=== PATIENT | female | born 1975 | race Caucasian/White ===

== ENCOUNTER 2025-04-23 16:07 | Inpatient (IN) | payer MEDICARE, BC ==
[2025-04-23] VITALS (7 sets, daily range): BP systolic 123–167; BP diastolic 45–76; PULSE 80–88; RESP 15–23; TEMP 97.8–98.9; O2SAT 93–95
[~2025-04-23] VITALS: Ht 165.1 cm; Wt 102.0 kg
[2025-04-23 17:28] LABS: MEAN PLATELET VOLUME 7.7 FL (7.4-10.4); RED CELL DISTRIBUTION WIDTH 14.7 % (11.5-14.5)
--- NOTE | 2025-04-23 17:38 | Physician Documentation ---
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 Patient states she has had one transfusion previously back in 2021. She states that she occasionally will get Epogen but it is not consistent there has been no change in any dosage your consistency with how she gets this. Colonoscopy done in 2022 normal. Patient is only on blood thinners during her dialysis treatments. She denies any changes in her stool. No constipation, melena, diarrhea, abdominal pain, heartburn or acid reflux. Patient was transferred here from [facility] in [place] since they do not have the ability to do dialysis there however she did complete her dialysis today and she is not due for a dialysis treatment until Saturday. She has dialysis Saturday and Fridays. She is not fluid restricted and is not on a renal diet. Medication Reconciliation Allergies: Coded Allergies: No Known Allergies (Unverified , 04/23/25) Past Medical History Past Medical History: *RENAL/* (goodpastures disease ), Dialysis Lives In: Home Review of Systems All Other Systems at this time: Reviewed and Negative Physical Exam Vital Signs: Temperature: 98.2, Source: Temporal, Heart Rate: 84, Respiratory Rate: 26, BP: 146/77, Pulse Oximetry: 94, Weight: 102.000 Oxygen Flow Rate: 4.0 Physical Exam GENERAL: Alert, no acute distress. HEENT: NCAT, EOMI, PERRL, normal oropharynx, moist oral mucosa. NECK: Supple, trachea midline. CARDIAC: Regular rate and rhythm, no murmurs, rubs, or gallops. RESPIRATORY: Equal breath sounds, clear to auscultation bilaterally, no respiratory distress. GASTROINTESTINAL: Non distended, soft, nontender, No guarding or rebound. RECTAL: (NEGATIVE OCCULT BLOOD TEST DONE EARLIER TODAY AT [facility] PER RECORDS) MUSCULOSKELETAL: Normal range of motion, nontender, no swelling. NEUROLOGICAL: Awake, alert, and oriented x 3. SKIN: Warm/dry, no pallor, no rash. PSYCH: Alert and appropriate. Affect congruent with mood. Speech is clear. Good eye contact. Progress Progress Note CHEST XRAY FROM [place] E[facility]LIER TODAY SAYS BILATERAL LUNG INFILTRATES Results/Orders Results/Orders Orders - WHIT ALMONTE Type And Screen (04/23/25 16:34) Lrpc - Active Bleeding (04/23/25 16:34) BMP (04/23/25 16:34) Occult Bld Stool (04/23/25 16:34) Page Hospitalist (04/23/25 17:31) Completed Orders - WHIT ALMONTE Cbc/Diff (04/23/25 16:34) Vital Signs 04/23/25 04/23/25 04/23/25 16:08 16:17 16:49 Temp 98.2 Pulse 90 84 Resp 16 20 26 B/P (MAP) 130/98 146/77 (100) Pulse Ox 94 94 O2 Flow Rate 2.0 4.0 Laboratory Tests Test 04/23/25 16:58 White Blood Count 14.3 H Red Blood Count 2.37 L Hemoglobin 6.7 *L Hematocrit 20.6 *L Mean Corpuscular Volume 86.9 Mean Corpuscular Hemoglobin 28.4 Mean Corpuscular Hemoglobin Concent 32.6 L Red Cell Distribution Width 14.7 H Platelet Count 255 Mean Platelet Volume 7.7 Neutrophils (%) (Auto) 72.6 Lymphocytes (%) (Auto) 16.8 L Monocytes (%) (Auto) 10.2 Eosinophils (%) (Auto) 0.2 Basophils (%) (Auto) 0.2 Neutrophils # (Auto) 10.4 H Lymphocytes # (Auto) 2.4 Monocytes # (Auto) 1.5 H Eosinophils # (Auto) 0.0 Basophils # (Auto) 0.0 CBC Comment Chemistry Comments Medical Decision Making Additional information obtaine: other Findings RECORDS FROM [facility] Heart Score: 0 Differential Dx:Considerations: Include: anxiety, asthma, bronchitis, cardiogenic shock, CHF, COPD, dysrhythmia, hypertension, accelerated, hypertension, essential, hypertension, malignant, hyperventilation, hyponatremia, myocardial infarction, panic attack, pneumonia, pneumonitis, pneumothorax, PSVT, pulmonary embolism, respiratory distress, respiratory failure, sinusitis, upper resp. infection, other Departure Time of Disposition: 17:36 Admitted to Inpatient Unit: to hospitalist Impression: Primary Impression: Normocytic normochromic anemia Additional Impressions: Dialysis patient Goodpasture disease Pulmonary infiltrates Condition: Fair Referrals: NO PRIMARY CARE PROVIDER (PCP) Education Educated: Patient Educated regarding: diagnosis, treatment, need for follow up Signature Scribe Signature: x Attestation: WHIT Rivero Apr 23, 2025 17:38
[2025-04-23 17:47] LABS: CREATININE 5.71 MG/DL (0.40-0.90); TOTAL CARBON DIOXIDE 32.1 MMOL/L (24-32); eCRCL 11 ML/MIN; eGFR 8 ML/MIN
[2025-04-23] MEDS ORDERED: acetaminophen 650mg rectal suppository RC PRN (18:10)
[2025-04-23] MEDS ORDERED: magnesium sulf-water 2g/50mL 50 ML IV PRN (18:10)
[2025-04-23] MEDS ORDERED: HYDROcodone/acetaminophen 5mg/325mg tablet PO PRN (18:10)
[2025-04-23] MEDS ORDERED: ipratropium/albuterol 3ml nebule NEB PRN (18:10)
[2025-04-23] MEDS ORDERED: magnesium sulf-water 4G/100mL 100 ML IV PRN (18:10)
[2025-04-23] MEDS ORDERED: mag hydrox/Alum hydrox/simeth 30ml oral suspension PO PRN (18:10)
[2025-04-23] MEDS ORDERED: magnesium hydroxide 30ml (MOM) UD suspension PO PRN (18:10)
[2025-04-23] MEDS ORDERED: potassium Cl 20 mEq SR tablet PO PRN ×2 (18:10)
[2025-04-23] MEDS ORDERED: metoclopramide 5 mg/ml inj IV PRN (18:10)
[2025-04-23] MEDS ORDERED: potassium Cl 40MEQ/1/2NS 520ml 520 ML IV PRN (18:10)
[2025-04-23] MEDS ORDERED: bisacodyl 10mg suppository rectal RC PRN (18:10)
[2025-04-23] MEDS ORDERED: magnesium Cl slow-release 64mg tablet PO PRN (18:10)
[2025-04-23] MEDS ORDERED: ondansetron 4mg rapidly disintigrating tab PO PRN (18:10)
[2025-04-23] MEDS: normal saline 1000ml 1,000 ML IV SCH (18:10)
[2025-04-23] MEDS ORDERED: ondansetron/PF 4mg/2ml inj IV PRN (18:10)
[2025-04-23] MEDS ORDERED: HYDROcodone/acetaminophen 10/325mg tab PO PRN (18:10)
--- NOTE | 2025-04-23 18:32 | HISTORY AND PHYSICAL ---
History & Physical Providers to Chief complaint, shortness of breath ~ History of Present Illness Reason for Admit\Complaint: As above History of Present Illness 49 y/o female with history of multiple medical problems including end-stage renal disease on hemodialysis, anemia hemoglobin 6.3, history of anemia treated with blood transfusion and Epogen occasionally, hematuria, pre morbid obesity BMI 37, presented today to emergency department transferred from [facility] chief complaint shortness of breath; in addition patient with goodpasture disease here due to experiencing more shortness of breath and a hemoglobin of 6.3 at dialysis today. Patient states she has had one transfusion previously back in 2021. She states that she occasionally will get Epogen but it is not consistent there has been no change in any dosage your consistency with how she gets this. Colonoscopy done in 2022 normal. Patient is only on blood thinners during her dialysis treatments. She denies any changes in her stool. No constipation, melena, diarrhea, abdominal pain, heartburn or acid reflux. Patient was transferred here from [facility] in [place] since they do not have the ability to do dialysis there however she did complete her dialysis today and she is not due for a dialysis treatment until Saturday. She has dialysis Saturday and Fridays. She is not fluid restricted and is not on a renal diet. In emergency department patient was evaluated by medical provider and after consultation with fire extinguisher tester Decision was made to admit patient for further evaluation and treatment, no additional complaint or concern. Allergies: Coded Allergies: No Known Allergies (Unverified , 04/23/25) Active prescriptions I reviewed reconciled Home Medications Pending Past Medical History Past Medical History As in HPI Past Surgical History Surgical History Comment As in HPI Past Social History Social History Comment Deny illicit drug abuse tobacco alcohol use live with the family good social support Health Maintenance Health Maintenance Noncontributory ROS ROS Constitutional : no fever , no chills, or weakness. No diaphoresis. Allergic/Immunologic, no lymphadenopathy, no hives, no skin eruptions. Eyes, no recent visual changes, no eye pain, no photophobia. Ears, nose, mouth, throat, no sore throat, no nosebleed, no ear pain. Cardiovascular, no palpitations, skipped beats, chest pain, no peripheral edema, Respiratory, positive for dyspnea, orthopnea, cough, no hemoptysis, chest wall pain. Gastrointestinal, no abdominal pain, nausea, vomiting, constipation or diarrhea. : no dysuria, hematuria, pelvic pain, urethral d/c. Endocrine, no polyuria, polydipsia, recent unintentional weight gain or loss. Hematologic/Lymphatic, no petechiae, no enlarged lymph nodes, no bone pain. Integumentary, no rash, no skin lesions, Musculoskeletal, no muscle aches, or pain, no muscle cramps, no recent change in gait Neurological, no dizziness, no headache, no syncope, no paresthesia. Psychiatric, no delusions, visual hallucinations, or hearing hallucinations. ROS - in rest is as in HPI. Exam Vitals: Vital Signs Date Time Temp Pulse Resp B/P (MAP) Pulse Ox O2 Delivery O2 Flow Rate FiO2 04/23/25 17:56 85 23 137/70 (92) 93 4.0 04/23/25 16:08 98.2 Vital signs, stable ,afebrile. Pulse Oximetry reflects adequate oxygenation. On 4 L oxygen nasal cannula BMI is 37, weight 102 kg General: well developed, well nourished. Awake , alert, and oriented x4, resting comfortably in the bed, in no acute distress . Skin: Warm, dry, no pallor, no rash or petechiae. HEENT: Atraumatic, normocephalic, EOMI, anicteric sclera B; pink conjunctiva; PERRLA, normal oropharynx, moist oral and nasal mucosa. Tympanic membrane , nose , throat clear. Neck: Trachea midline. Supple, full range of motion, no JVD, bruit , hepatojugular reflex , lymphadenopathy or masses, or other lesions Cardiac: Regular rhythm, regular rate no murmurs, rubs, or gallops. Normal S1 and S2, no S3 noticed. PMI is normal. Respiratory: Equal breath sounds bilaterally, no tachypnea; lungs clear to auscultation bilaterally, no wheezing ,rub or rales, or crackles. Chest wall is symmetric and without deformity. No signs of trauma. Chest wall is nontender. No signs of respiratory distress. Resonance is normal upon percussion bilaterally. Gastrointestinal: Abdomen symmetric, non-distended, soft, non-tender, normal bowel sounds x4 quadrant, normoactive, no hepatosplenomegaly , no masses , no bruit, no flank pain bilaterally. No voluntary guarding, rebound, or rigidity. No tenderness to percussion. No pulsatile masses. Equal femoral pulses. No Sousa's sign or McBurney point tenderness. Back; no CVA tenderness bilaterally, no deformities. Neck and back are without deformity as well. No tenderness noted on palpation of the spinous processes. Spinous processes are midline. Cervical, thoracic, and lumbar paraspinal muscles are not tender and are without spasm. : Deferred by patient Musculoskeletal: Extremities, normal range of motion, non-tender, muscle strength 5/5 x 4. Negative Homans signs bilaterally on lower extremity. Distal pulses full symmetrical, no clubbing, cyanosis , edema. Neurological: Speech is clear, alert, and oriented x 4. No motor or sensory deficit, deep tendon reflexes normal, cerebellar intact. Cranial nerves II-XII intact. Psych: Alert and or appropriate, normal affect. Vascular: Good distal pulses, which are equal x4; capillary refill less than 2 seconds. Lymphatic, no lymphadenopathy. Diagnostic Data Last Recorded Lab Results: [id number]/[id number] Diagnostic Data: Laboratory Tests Test 04/23/25 16:58 Coagulation Comments Advance Care Planning Advanced Care plannin - 30 Minutes Additional Plan Assessment Goodpasture disease End-stage renal disease on hemodialysis secondary to above Acute bilateral pneumonia community-acquired g positive g negative Acute hypoxic respiratory failure secondary to above Anemia hemoglobin 6.3 Hematuria History of chronic anemia treated with blood transfusion Epogen in the past Pre morbid obesity BMI 37 Plan IV antibiotics, fluids prn, keep patient well hydrated Incentive spirometry, oxygen support therapy [facility] Is on the case Serial troponin EKG Blood transfusion CT chest abdomen pelvis pending I reconciled home medications DVT gastropathy prophylaxis addressed Sepsis Screening Reassessment Date: Apr 23, 2025 Date of Service: Apr 23, 2025 Billing Provider: CARLY EDGE MD Common Visit Codes: [id number] INP/OBS CARE (HIGH) Secondary Visit Codes: 63483-[id number] CARE PLAN 30 MINUTES CARLY EDGE MD Apr 23, 2025 18:32
[2025-04-23 18:36] LABS: APTT 30 SECONDS (22-32); INR 1.1 INR
[2025-04-23 18:58] LABS: PHOSPHORUS 4.4 MG/DL (2.3-4.5); PRO BRAIN NATRIURETIC PEPTIDE 2767 PG/ML (0-125)
--- NOTE | 2025-04-23 19:12 | RADIOLOGY REPORT ---
Procedure: CT CT CHEST ABDOMEN PELVIS 04/23/2025 06:27 PM Indication: sepsis; opacities Comparison Study: None Technique: Axial images were obtained and reformatted in coronal and sagittal planes. All CT scans at this medical facility are performed using dose modulation techniques as appropriate to a performed exam including the following: Automated exposure control was utilized; adjustment of the MA and/or KV according to patient size; and use of iterative reconstruction technique. CT Dose: CTDI volume is 32.54 mGy. Dose-length product is 2544.74 mGy*cm FINDINGS: Chest: The thyroid gland is unremarkable. Heart size is within normal limits. Trace pericardial effusion. Pulmonary trunk is normal in size. No evidence of aortic aneurysm. No significant mediastinal lymphadenopathy. Ground-glass , Tree-in-bud and solid Opacities of bilateral Lung. Right mid lower lobe bullae. No pneumothorax or pleural effusion. The soft tissues unremarkable. No evidence of acute osseous abnormalities. Abdomen and pelvis: 1.6 cm splenic cyst. 3.2 cm hepatic cyst., liver, spleen, gallbladder, pancreas and right adrenal gland are unremarkable. 3 cm left adrenal nodule measuring up to 0.1 Hounsfield units which most likely represents an adenoma. Kidneys, ureters and urinary bladder are unremarkable. Uterus and adnexa are unremarkable. Stomach is unremarkable. Small bowel loops unremarkable. Appendix is unremarkable. Sigmoid diverticulosis without diverticulitis. Moderate to large amount of fecal material within the colon. No evidence of intraperitoneal free air or free fluid. No evidence of aortic aneurysm. No significant lymphadenopathy. Tiny fat containing umbilical hernia. Minimal body wall edema. Sclerotic focus over the right transverse process of L3 which may represent a small bone island with a Blastic lesion not excluded. No evidence of acute osseous abnormalities. IMPRESSION: Ground-glass, tree-in-bud and patchy opacities of bilateral lungs which may represent multifocal pneumonia. No evidence of acute abdominopelvic abnormalities. 1.6 cm splenic cyst with 3.2 cm hepatic cyst. 3 cm left adrenal adenoma. Sigmoid diverticulosis without diverticulitis. Moderate to large amount of fecal material within the colon.
[2025-04-23] MEDS: K and/or MAG REPLACEMENT MC SCH (20:00)
[2025-04-23] MEDS: docusate sod 100mg capsule PO SCH (20:00)
[2025-04-23] MEDS: heparin, porcine 5000 units/ml vial SQ SCH (20:19)
[2025-04-23] MEDS ORDERED: ROSU20TA98 PO (20:22)
[2025-04-23] MEDS ORDERED: EZET10TA80 PO (20:22)
[2025-04-23 21:50] LABS: MEAN PLATELET VOLUME 7.8 FL (7.4-10.4); RED CELL DISTRIBUTION WIDTH 14.4 % (11.5-14.5)
[2025-04-23 23:23] LABS: LEUKOCYTE ESTERASE ,URINE NEGATIVE (Neg); NITRITES, URINE NEGATIVE (Neg); OCCULT BLOOD,URINE LARGE (Neg)
[2025-04-23 23:25] LABS: UA COLLECTION TYPE VOIDED
[2025-04-23 23:38] LABS: SQUAMOUS EPITHELIAL CELL,UR FEW /LPF (FEW)
[2025-04-24] VITALS (12 sets, daily range): BP systolic 126–149; BP diastolic 55–74; PULSE 72–89; RESP 14–18; TEMP 97.2–99; O2SAT 92–96
[2025-04-24 01:44] LABS: MEAN PLATELET VOLUME 7.5 FL (7.4-10.4); RED CELL DISTRIBUTION WIDTH 14.5 % (11.5-14.5)
[2025-04-24 02:00] LABS: CREATININE 6.49 MG/DL (0.40-0.90); TOTAL CARBON DIOXIDE 31.2 MMOL/L (24-32); eCRCL 9 ML/MIN; eGFR 7 ML/MIN
[2025-04-24] MEDS: azithromycin/NS 500mg/250ml 250 ML IV SCH (07:14)
[2025-04-24 08:15] LABS: MEAN PLATELET VOLUME 8.2 FL (7.4-10.4); RED CELL DISTRIBUTION WIDTH 15.2 % (11.5-14.5)
[2025-04-24] MEDS: CefTRIAXone 2gm/D5W 50ml BAG 50 ML IV SCH (09:05)
[2025-04-24 11:27] LABS: MEAN PLATELET VOLUME 8.5 FL (7.4-10.4); RED CELL DISTRIBUTION WIDTH 15.0 % (11.5-14.5)
--- NOTE | 2025-04-24 14:38 | PROGRESS NOTE ---
Daily Progress Note Providers to CC ~ patient is feeling better today, hemoglobin 8.6 Central Line/PICC still needed: No Fuchs-Non Protocol Fuchs Indications Met/Not Met: F/C Indications Not Met Antibiotic Timeout Antibiotic Ordered?: Yes MRSA Education MRSA Education Provided to pt: Yes Subjective As above Objective Vital Signs Date Time Temp Pulse Resp B/P (MAP) Pulse Ox O2 Delivery O2 Flow Rate FiO2 04/24/25 10:07 85 18 92 Nasal Cannula* 4 36 04/24/25 10:00 98.6 144/66 (92) Vital signs, stable ,afebrile. Pulse Oximetry reflects adequate oxygenation. On 4 L oxygen nasal cannula General: well developed, well nourished. Awake , alert, and oriented x4, resting comfortably in the bed, in no acute distress . Skin: Warm, dry, no pallor, no rash or petechiae. HEENT: Atraumatic, normocephalic, EOMI, anicteric sclera B; pink conjunctiva; PERRLA, normal oropharynx, moist oral and nasal mucosa. Tympanic membrane , nose , throat clear. Neck: Trachea midline. Supple, full range of motion, no JVD, bruit , hepatojugular reflex , lymphadenopathy or masses, or other lesions Cardiac: Regular rhythm, regular rate no murmurs, rubs, or gallops. Normal S1 and S2, no S3 noticed. PMI is normal. Respiratory: Equal breath sounds bilaterally, no tachypnea; lungs clear to auscultation bilaterally, no wheezing ,rub or rales, or crackles. Chest wall is symmetric and without deformity. No signs of trauma. Chest wall is nontender. No signs of respiratory distress. Resonance is normal upon percussion bilaterally. Gastrointestinal: Abdomen symmetric, non-distended, soft, non-tender, normal bowel sounds x4 quadrant, normoactive, no hepatosplenomegaly , no masses , no bruit, no flank pain bilaterally. No voluntary guarding, rebound, or rigidity. No tenderness to percussion. No pulsatile masses. Equal femoral pulses. No Sousa's sign or McBurney point tenderness. Back; no CVA tenderness bilaterally, no deformities. Neck and back are without deformity as well. No tenderness noted on palpation of the spinous processes. Spinous processes are midline. Cervical, thoracic, and lumbar paraspinal muscles are not tender and are without spasm. Musculoskeletal: Extremities, normal range of motion, non-tender, muscle strength 5/5 x 4. Negative Homans signs bilaterally on lower extremity. Distal pulses full symmetrical, no clubbing, cyanosis , edema. Neurological: Speech is clear, alert, and oriented x 4. No motor or sensory deficit, deep tendon reflexes normal, cerebellar intact. Cranial nerves II-XII intact. Psych: Alert and or appropriate, normal affect. Vascular: Good distal pulses, which are equal x4; capillary refill less than 2 seconds. Lymphatic, no lymphadenopathy. Result Diagram: 04/24/25 1049 04/24/25 0137 Coagulation Studies Laboratory Tests Test 04/23/25 16:58 Prothrombin Time 11.1 SECONDS (9.0-12.0) INR International Normalized Ratio 1.1 INR Activated Partial Thromboplast Time 30 SECONDS (22-32) Coagulation Comments Problem\Assessment\Plan Assessment Goodpasture disease End-stage renal disease on hemodialysis secondary to above Acute bilateral pneumonia community-acquired g positive g negative Acute hypoxic respiratory failure secondary to above Anemia hemoglobin 6.3; F OBS test, pending F OBS was negative at sending hospital History of EGD colonoscopy in the past 3- seven years Hematuria History of chronic anemia treated with blood transfusion Epogen in the past Pre morbid obesity BMI 37 Plan IV antibiotics, fluids prn, keep patient well hydrated Incentive spirometry, oxygen support therapy [facility] Nephrology Is on the case Serial troponin EKG Blood transfusion GI doctor consult pending CT chest abdomen pelvis pending I reconciled home medications DVT gastropathy prophylaxis addressed Sepsis Screening Reassessment Date: Apr 24, 2025 Date of Service: Apr 24, 2025 Billing Provider: CARLY EDGE MD Common Visit Codes: [id number] INP/OBS CARE(HIGH) CARLY EDGE MD Apr 24, 2025 14:38
--- NOTE | 2025-04-24 15:15 | CONSULTATION REPORT ---
Consult Providers to CC ~ History of Present Illness Primary Medical Doctor: theron baum MD Reason for Admit\Complaint: gross hematuria, pulmonary infiltrates, good pasture syndrome, ESRD History of Present Illness This is a 49 year old woman with history of Good pasture syndrome, that was on treatment under from [place], until 2021, and I spoke with him today. Although over te weekend, he couldn't recall everything, he does remember her GBS and feels, with the presentation with hematuria and pulmonary infiltratres, and O2 dependency, though it is a burnt kidneys, she may very well need pulmonary aggressive management including steroids, cytoxan and plasmapheresis. Unfortunately, this hospital does not offer plasmapheresis or chemotherapy. I have requested to get her transferred to 's service in [place] and he will be the accepting physician over there. I shall give Solumedrol 500mg iv x once now. She has end-stage renal disease on hemodialysis, anemia hemoglobin 6.3, history of anemia treated with blood transfusion and Epogen occasionally, hematuria, pre morbid obesity BMI 37, presented yesterday to emergency department transferred from [facility] chief complaint shortness of breath; in addition patient with goodpasture disease here due to experiencing more shortness of breath and a hemoglobin of 6.3 at dialysis today. Patient states she has had one transfusion previously back in 2021. She states that she occasionally will get Epogen but it is not consistent there has been no change in any dosage your consistency with how she gets this. Colonoscopy done in 2022 normal. Patient is only on heparin during her dialysis treatments. She denies any changes in her stool. No constipation, melena, diarrhea, abdominal pain, heartburn or acid reflux. Patient was transferred here from [facility] in [place] since they do not have the ability to do dialysis there however she did complete her dialysis today and she is not due for a dialysis treatment until Saturday. She has dialysis Saturday and Fridays. When I spoke to the ER physician last night, anemia was the focus and I requested him to rule out any gi loss. The pulmonary infiltrates and history of Good pasture was never discussed last night with me. Allergies: Coded Allergies: No Known Allergies (Unverified , 04/23/25) Home Medications Home Medications Active Reported Rosuvastatin Calcium 20 Mg Tablet 1 Tab PO DAILY Ezetimibe 10 Mg Tablet 1 Tab PO DAILY Past Medical History Past Medical History Good pasture syndrome ESRD on HD at [facility] unit HTN Obesity hematuria Past Surgical History Surgical History Comment TDC Past Social History Social History Comment non smoker, non alcoholic no drug abuse ROS ROS shortness of breath, mild orthopnea gross hematuria no rectalbleeds or hematemesis Exam Vitals: Vital Signs Date Time Temp Pulse Resp B/P (MAP) Pulse Ox O2 Delivery O2 Flow Rate FiO2 04/24/25 10:07 85 18 92 Nasal Cannula* 4 36 04/24/25 10:00 98.6 144/66 (92) General: Vital Signs: As above General: obese body habitus, no acute distress. Skin: No rashes, lumps, ulcers, blisters, purpura or petechiae HEENT: Anicteric sclera, ANGIE Neck: Supple and nontender without enlargement of the thyroid, or lymphadenopathy. Chest: few scattered rales Heart: Regular. No jugular venous distention, S1 and S2 heard , no gallop Abdomen: Soft and non tender no organomegaly,BS+ Extremities: No pedal edema Neuro: Nonfocal. Diagnostic Data Last Recorded Lab Results: 04/24/25 1049 04/24/25 0137 Diagnostic Data: Laboratory Tests Test 04/23/25 16:58 Prothrombin Time 11.1 SECONDS (9.0-12.0) INR International Normalized Ratio 1.1 INR Activated Partial Thromboplast Time 30 SECONDS (22-32) Coagulation Comments Problems: (1) Gross hematuria Assessment & Plan: - could be reactivation of GBS vs any hemorrhagic cystitis from the previous exposure to Cyclophosphamide - I spoke to as mentioned inteh HPI. - I have updated the RN and to get her transferred to [place] ONLY under , in light of possible GBs reactivation, that would require plasmpheresis, cytoxan and high dose steroids. of these, we can only provide the steroids here. For lack of specialty drugs and procedure, she has to be transferred to outside hospital [facility]RO. - There is still a possibility of infective process, with the wbc being slightly high here. She has bilateral infiltrates in kaela CT scan. This needs to be carefully assessed with ID consult as well, before instituting meds like Cytoxan. But plasma exchange is the need of the hour. - HD - no emergency. She looks ok from that front. She may benefit with both PlEX and HD tomorrow. (2) Normocytic normochromic anemia Status: Acute Assessment & Plan: epogen , xfusion as indicated to keep hb above 7 (3) Goodpasture disease Status: Acute Assessment & Plan: apparently treated in 2021, with burnt kidneys and is on dialysis. Bk can pull up records from [place] later. (4) Pulmonary infiltrates Status: Acute Assessment & Plan: highly suspicious for non infectious process, although infection is not completely ruled out yet. BONG SHIPMAN MD Apr 24, 2025 15:15
[2025-04-24] MEDS ORDERED: D5W IV ONE (15:30)
[2025-04-24] MEDS ORDERED: METHYLPREDNISOLONE SOD SUC IV ONE (15:30)
--- NOTE | 2025-04-24 15:34 | DISCHARGE SUMMARY ---
Discharge Summary Providers to Feels better today, ready to be transferred to [facility], Dr. Todd accepted the patient he is research contracts supervisor ~ Discharge Summary Assessment Assessment Goodpasture disease exacerbation End-stage renal disease on hemodialysis secondary to above Acute bilateral pneumonia community-acquired gr positive gr negative Acute hypoxic respiratory failure secondary to above Anemia hemoglobin 6.3, now 8.6 Hematuria History of chronic anemia treated with blood transfusion Epogen in the past Pre morbid obesity BMI 37 Admission Diagnosis: RDTF HF PNEUMONIA Admission Diagnosis Comment: Assessment Goodpasture disease End-stage renal disease on hemodialysis secondary to above Acute bilateral pneumonia community-acquired g positive g negative Acute hypoxic respiratory failure secondary to above Anemia hemoglobin 6.3 Hematuria History of chronic anemia treated with blood transfusion Epogen in the past Pre morbid obesity BMI 37 Hospital Course DATE OF ADMISSION: April 23, 2025 DATE OF DISCHARGE: April 24, 2025 Discharge Diagnosis\Comment: Assessment Goodpasture disease in exacerbation End-stage renal disease on hemodialysis secondary to above Acute bilateral pneumonia community-acquired g positive g negative Acute hypoxic respiratory failure secondary to above Anemia hemoglobin 6.3 , now 8.6 Hematuria History of chronic anemia treated with blood transfusion Epogen in the past Pre morbid obesity BMI 37 Operations\Procedures: Non Consultants: Bean Viner Complications: None Condition on DC: Stable Discharge Summary: This is 49 y/o female with history of multiple medical problems including end- stage renal disease on hemodialysis, anemia hemoglobin 6.3, history of anemia treated with blood transfusion and Epogen occasionally, hematuria, pre morbid obesity BMI 37, presented today to emergency department transferred from [facility] chief complaint shortness of breath; in addition patient with goodpasture disease here due to experiencing more shortness of breath and a hemoglobin of 6.3 at dialysis today. Patient states she has had one transfusion previously back in 2021. She states that she occasionally will get Epogen but it is not consistent there has been no change in any dosage your consistency with how she gets this. Colonoscopy done in 2022 normal. Patient is only on blood thinners during her dialysis treatments. She denies any changes in her stool. No constipation, melena, diarrhea, abdominal pain, heartburn or acid reflux. Patient was transferred here from [facility] in [place] since they do not have the ability to do dialysis there however she did complete her dialysis today and she is not due for a dialysis treatment until Saturday. She has dialysis Saturday and Fridays. She is not fluid restricted and is not on a renal diet. In emergency department patient was evaluated by medical provider and after consultation with research contracts supervisor Decision was made to admit patient for further evaluation and treatment, no additional complaint or concern. After admission patient was extensively evaluated treated, she feels better today, we will be transferred to [facility], research contracts supervisor Accepted the patient, Solu-Medrol 500 mg IV given times on now, today on physical exam, Vital signs, stable ,afebrile. Pulse Oximetry reflects adequate oxygenation. BMI is thirty-seven, weight 102 kg General: well developed, well nourished. Awake , alert, and oriented x4, resting comfortably in the bed, in no acute distress . Skin: Warm, dry, no pallor, no rash or petechiae. HEENT: Atraumatic, normocephalic, EOMI, anicteric sclera B; pink conjunctiva; PERRLA, normal oropharynx, moist oral and nasal mucosa. Tympanic membrane , nose , throat clear. Neck: Trachea midline. Supple, full range of motion, no JVD, bruit , hepatojugular reflex , lymphadenopathy or masses, or other lesions Cardiac: Regular rhythm, regular rate no murmurs, rubs, or gallops. Normal S1 and S2, no S3 noticed. PMI is normal. Respiratory: Equal breath sounds bilaterally, no tachypnea; lungs clear to auscultation bilaterally, no wheezing ,rub or rales, or crackles. Chest wall is symmetric and without deformity. No signs of trauma. Chest wall is nontender. No signs of respiratory distress. Resonance is normal upon percussion bilaterally. Gastrointestinal: Abdomen symmetric, non-distended, soft, non-tender, normal bowel sounds x4 quadrant, normoactive, no hepatosplenomegaly , no masses , no bruit, no flank pain bilaterally. No voluntary guarding, rebound, or rigidity. No tenderness to percussion. No pulsatile masses. Equal femoral pulses. No Sousa's sign or McBurney point tenderness. Back; no CVA tenderness bilaterally, no deformities. Neck and back are without deformity as well. No tenderness noted on palpation of the spinous processes. Spinous processes are midline. Cervical, thoracic, and lumbar paraspinal muscles are not tender and are without spasm. : normal external genitalia, without lesions, swelling, masses or tenderness. Musculoskeletal: Extremities, normal range of motion, non-tender, muscle strength 5/5 x 4. Negative Homans signs bilaterally on lower extremity. Distal pulses full symmetrical, no clubbing, cyanosis , edema. Neurological: Speech is clear, alert, and oriented x 4. No motor or sensory deficit, deep tendon reflexes normal, cerebellar intact. Cranial nerves II-XII intact. Psych: Alert and or appropriate, normal affect. Vascular: Good distal pulses, which are equal x4; capillary refill less than 2 seconds. Lymphatic, no lymphadenopathy. *Problems/Diagnosis: (1) Pulmonary infiltrates Status: Acute (2) Goodpasture disease Status: Acute (3) Dialysis patient Status: Acute (4) Normocytic normochromic anemia Status: Acute Total Time Spent on D/C: > 30 Minutes Date of Service: Apr 24, 2025 Billing Provider: CARLY EDGE MD Common Visit Codes: 80973-TJN/OBS DISCH DAY >30min CARLY EDGE MD Apr 24, 2025 15:34
[2025-04-24] MEDS: methylPREDNISolone sod succ 500 MG in dextrose 5%-water 50ml 50 ML IV ONE (16:01)
[2025-04-24 17:20] LABS: MEAN PLATELET VOLUME 8.5 FL (7.4-10.4); RED CELL DISTRIBUTION WIDTH 14.9 % (11.5-14.5)
--- NOTE | 2025-04-24 19:22 | CONSULTATION REPORT - RESIDENT ---
Consult Providers to CC Resident Creating Document: FREDI WHEAT RES History of Present Illness Reason for Admit\Complaint: Goodpasture syndrome History of Present Illness This is a 49-year-old female with past medical history of Goodpasture syndrome causing chronic kidney disease and anemia as a resultant of it was transferred from [facility]. She presented with symptoms of shortness of Breath was diagnosed with pneumonia. Blood work revealed severe normocytic normochromic anemia with H&H levels of 6.3 after dialysis today. She was transferred here for further management. Her next dialysis is on Saturday. She is being transferred to [place] for further nephrology care. She is on Epogen for a normocytic normochromic anemia. No complaints of nausea/vomiting, abdominal pain, distention, hematemesis, hemoptysis, melena, hematochezia, diarrhea/constipation. She underwent EGD, ERCP in September 2024 after being incidentally diagnosed with a pancreatic cyst during routine MRI workup for her ESRD. She is on to wait list for renal transplant. Patient is not on any gastric irritant drugs including NSAIDs and iron pills. Blood thinners only during dialysis. Allergies: Coded Allergies: No Known Allergies (Unverified , 04/23/25) Home Medications Home Medications Active Reported Rosuvastatin Calcium 20 Mg Tablet 1 Tab PO DAILY Ezetimibe 10 Mg Tablet 1 Tab PO DAILY Past Medical History Past Medical History Goodpasture disease in exacerbation End-stage renal disease on hemodialysis secondary to above Acute bilateral pneumonia community-acquired g positive g negative Acute hypoxic respiratory failure secondary to above Anemia hemoglobin 6.3 , now 8.6 Hematuria History of chronic anemia treated with blood transfusion Epogen in the past Past Surgical History Surgical History Comment Nothing significant Past Social History Social History Comment Deny illicit drug abuse tobacco alcohol use live with the family good social support Exam Vitals: Vital Signs Date Time Temp Pulse Resp B/P (MAP) Pulse Ox O2 Delivery O2 Flow Rate FiO2 04/24/25 18:41 89 18 94 Nasal Cannula* 4 36 04/24/25 10:00 98.6 144/66 (92) General: General: Obese, Well alert, well oriented, not confused, not agitated, not in acute distress, well cooperated during the physical. HEENT: Conjunctive are pink, sclerae clear, no icterus, pupil is equal in both sides, reactive to light, no ear discharge, no pharyngeal erythema or an edema. Neck: Supple, no JVD, no lymphadenopathy and thyromegaly. Chest: Equal air entry on both lungs, no added sounds, no wheeze. Cardiovascular: S1-S2 regular sinus rhythm and, regular rate, no gallops, no rubs, no murmurs Abdomen: No visible peristalsis, Bowel sounds present on auscultation, soft, nontender, no guarding, no rigidity Extremities: No obvious deformities, no pitting edema bilaterally, capillary refill intact, peripheral pulsations are intact on both sides Central Nervous System: No focal neurological deficits, no motor or sensory weakness in all 4 extremities, could move all 4 extremities, 2+ deep tendon reflexes, negative Babinski. Musculoskeletal: No joint swelling, deformities, inflammations, and no scoliosis and back tenderness Skin: Warm and dry. Diagnostic Data Last Recorded Lab Results: 04/24/25 1647 04/24/25 0137 Diagnostic Data: Laboratory Tests Test 04/23/25 16:58 Prothrombin Time 11.1 SECONDS (9.0-12.0) INR International Normalized Ratio 1.1 INR Activated Partial Thromboplast Time 30 SECONDS (22-32) Coagulation Comments Additional Plan Assessment: This is a 49-year-old female with history of Goodpasture syndrome causing end-stage renal disease on dialysis with severe normocytic normochromic anemia is a resultant of it was transferred from [place]. Currently she is undergoing treatment for community-acquired pneumonia and acute hypoxemic respiratory failure. Blood work reveals severe anemia with H&H levels of 6.7 and 20.6 and normal MCV. Even though the ESRD but be causing her severe anemia patient not improving with Epogen she will need GI workup to rule out GI causes of bleed. Plan: Transfuse 1 unit of PRBC now Monitor H&H and transfuse PRBC in case hemoglobin drops below 7 NPO, endoscopy tomorrow Protonix 40 mg p.o. daily This is conditions managed as per hospitalist team. Fredi Wheat Internal Medicine, PGY1 [facility] Date of Service: Apr 24, 2025 Billing Provider: DORENE CONNOR MD, SHIVANI, RES Apr 24, 2025 19:22
[2025-04-24 22:30] LABS: MEAN PLATELET VOLUME 8.6 FL (7.4-10.4); RED CELL DISTRIBUTION WIDTH 14.8 % (11.5-14.5)
[2025-04-25 02:07] LABS: MEAN PLATELET VOLUME 8.5 FL (7.4-10.4); RED CELL DISTRIBUTION WIDTH 14.5 % (11.5-14.5)
[2025-04-25 02:21] LABS: CREATININE 8.17 MG/DL (0.40-0.90); LACTATE DEHYDROGENASE 209 U/L (81-234); TOTAL CARBON DIOXIDE 27.5 MMOL/L (24-32); eCRCL 7 ML/MIN; eGFR 5 ML/MIN
[2025-04-25 06:00] VITALS: BP 131/68; PULSE 85; RESP 18; TEMP 98; O2SAT 97
[2025-04-25 08:00] VITALS: RESP 18; O2SAT 97
[2025-04-25 08:10] LABS: OCCULT BLOOD STOOL NEGATIVE (Neg)
[2025-04-25 08:11] LABS: MEAN PLATELET VOLUME 8.7 FL (7.4-10.4); RED CELL DISTRIBUTION WIDTH 14.7 % (11.5-14.5)
[2025-04-25 08:55] VITALS: PULSE 84; RESP 18; O2SAT 92
[2025-04-25] MEDS ORDERED: MIDAZolam 1 MG/ML 5ML VIAL ONE (09:32)
[2025-04-25] MEDS ORDERED: fentaNYL/PF 50MCG/1 ML 2ML syringe ONE (09:32)
[2025-04-25 10:00] VITALS: BP 153/71; PULSE 89; RESP 18; TEMP 98.9; O2SAT 91
[2025-04-25 14:36] LABS: MEAN PLATELET VOLUME 9.0 FL (7.4-10.4); RED CELL DISTRIBUTION WIDTH 14.8 % (11.5-14.5)
--- NOTE | 2025-04-25 15:43 | CARDIOLOGY REPORT ---
APPROVED REPORT EXAM: Comprehensive 2D, Doppler, and color-flow Echocardiogram. Patient Location: [address] Blood Pressure: 144/66 mmHg Heart Rate: 81 bpm Rhythm: Sinus Rhythm Indications Congestive Heart Failure Hypoxia Multi Focal Pneumonia [employer] Delivery Driver: None, Transfer from [facility] ( [place] ) Previous echo: None 2D Dimensions RVDd 2.9 cm LA Diam 4.4 cm Aortic Root(2D) 3.3 cm LVOT Diameter 1.95 (1.8-2.4cm) IVC 22.79 mm CO 4.8 L/min M-Mode Dimensions Left Atrium(MM) 4.00 (2.5-4.0cm) IVSd 0.83 (0.7-1.1cm) LVDd 4.46 (4.0-5.6cm) Aortic Root 3.34 (2.2-3.7cm) PWd 1.06 (0.7-1.1cm) Aortic Cusp Exc 2.18 (1.5-2.0cm) IVSs 1.32 cm MV EPSS 0.7 (<0.5cm) LVDs 2.91 (2.0-3.8cm) FS (%) 35 % PWs 0.98 cm ESV(Teich) 32.6 ml LVEF(%) 64 (>50%) Aortic Valve AoV Peak Dimas. 165.8 cm/s AoV VTI 32.5 cm AO Peak GR. 11.0 mmHg AO Mean GR. 6 mmHg LVOT VTI 25.09 cm LVOT Peak Dimas. 129.7 cm/s GRACIE(VTI)/BSA 2.32 cm2/m2 GRACIE (VTI) 2.32 cm2 AV DI 0.77 % Mitral Valve MV E Velocity 87.4 cm/s MV Peak Gr. 6 mmHg MV DECEL TIME 204 ms MV A Velocity 95.4 cm/s MV Mean Gr. 2 mmHg MV PHT 52 ms E/A Ratio 0.9 MVA (PHT) 4.23 cm2 MV VMax 123.3 cm/s MV VMean 65.0 cm/s MVA VTI 2.90 cm2 MV VTI 26.0 cm TDI Medial E' P. V 17.59 cm/s E/Medial E' 5.0 Tricuspid Valve TR P. Velocity 247 cm/s RAP ESTIMATE 10 mmHg TR Peak Gr. 24 mmHg RVSP 34 mmHg Pulmonary Vein S1 Velocity 47.4 cm/s D2 Velocity 59.1 cm/s PVa Velocity 29.5 cm/s PVa Duration 152 msec LEFT VENTRICLE Normal LV size and wall thickness. Overall systolic function is normal. Overall LVEF is 60-65%. RIGHT VENTRICLE RV is normal size and function. Estimated PA systolic pressure is 34 mmHg. ATRIA Left atrium is mildly dilated. AORTIC VALVE Trileaflet AV appears sclerotic without stenosis or insufficiency. MITRAL VALVE Mild MV annular thickening without stenosis. Trace regurgitation. TRICUSPID VALVE TV appears structurally normal with mild regurgitation. PULMONIC VALVE Grossly normal PV without stenosis, physiologic insufficiency. GREAT VESSELS The aortic root is normal in size. IVC is dilated and collapses less than 50% with inspiration. PERICARDIUM Normal pericardium. No pericardial effusion seen. Other Information Study Quality: Adequate Conclusion Overall LVEF is 60-65%. Normal LV size and wall thickness. Overall systolic function is normal. RV is normal size and function. Estimated PA systolic pressure is 34 mmHg. Trileaflet AV appears sclerotic without stenosis or insufficiency. Mild MV annular thickening without stenosis. Trace regurgitation. TV appears structurally normal with mild regurgitation. Grossly normal PV without stenosis, physiologic insufficiency. Normal pericardium. No pericardial effusion seen.
--- NOTE | 2025-04-25 17:24 | DISCHARGE SUMMARY ---
Discharge Summary Providers to Patient discharged today ~ Discharge Summary Assessment As above Admission Diagnosis: RDTF HF PNEUMONIA Admission Diagnosis Comment: As above Hospital Course DATE OF ADMISSION: April 23, 2025 DATE OF DISCHARGE: April 25, 2025 Discharge Diagnosis\Comment: As above Operations\Procedures: Non Consultants: Deck Mechanic Complications: None Condition on DC: Stable for transfer Discharge Summary: Discharge Summary Providers to Feels better today, ready to be transferred to [facility], Dr. Todd accepted the patient he is pillow filler ~ Discharge Summary Assessment Assessment Goodpasture disease exacerbation End-stage renal disease on hemodialysis secondary to above Acute bilateral pneumonia community-acquired gr positive gr negative Acute hypoxic respiratory failure secondary to above Anemia hemoglobin 6.3, now 8.6 Hematuria History of chronic anemia treated with blood transfusion Epogen in the past Pre morbid obesity BMI 37 Admission Diagnosis: RDTF HF PNEUMONIA Admission Diagnosis Comment: Assessment Goodpasture disease End-stage renal disease on hemodialysis secondary to above Acute bilateral pneumonia community-acquired g positive g negative Acute hypoxic respiratory failure secondary to above Anemia hemoglobin 6.3 Hematuria History of chronic anemia treated with blood transfusion Epogen in the past Pre morbid obesity BMI 37 Hospital Course DATE OF ADMISSION: April 23, 2025 DATE OF DISCHARGE: April 25, 2025 Discharge Diagnosis\Comment: Assessment Goodpasture disease in exacerbation End-stage renal disease on hemodialysis secondary to above Acute bilateral pneumonia community-acquired g positive g negative Acute hypoxic respiratory failure secondary to above Anemia hemoglobin 6.3 , now 8.6 Hematuria History of chronic anemia treated with blood transfusion Epogen in the past Pre morbid obesity BMI 37 Operations\Procedures: Non Consultants: Deck Mechanic Complications: None Condition on DC: Stable Discharge Summary: This is 49 y/o female with history of multiple medical problems including end- stage renal disease on hemodialysis, anemia hemoglobin 6.3, history of anemia t reated with blood transfusion and Epogen occasionally, hematuria, pre morbid obesity BMI 37, presented today to emergency department transferred from [facility] chief complaint shortness of breath; in addition patient with goodpasture disease here due to experiencing more shortness of breath and a hemoglobin of 6.3 at dialysis today. Patient states she has had one transfusion previously back in 2021. She states that she occasionally will get Epogen but it is not consistent there has been no change in any dosage your consistency with how she gets this. Colonoscopy done in 2022 normal. Patient is only on blood thinners during her dialysis treatments. She denies any changes in her stool. No constipation, melena, diarrhea, abdominal pain, heartburn or acid reflux. Patient was transferred here from [facility] in [place] since they do not have the ability to do dialysis there however she did complete her dialysis today and she is not due for a dialysis treatment until Saturday. She has dialysis Saturday and Fridays. She is not fluid restricted and is not on a renal diet. In emergency department patient was evaluated by medical provider and after consultation with pillow filler Decision was made to admit patient for further evaluation and treatment, no additional complaint or concern. After admission patient was extensively evaluated treated, she feels better today, we will be transferred to [facility], pillow filler Accepted the patient, Solu-Medrol 500 mg IV given times on now, today on physical exam, Vital signs, stable ,afebrile. Pulse Oximetry reflects adequate oxygenation. BMI is thirty-seven, weight 102 kg General: well developed, well nourished. Awake , alert, and oriented x4, resting comfortably in the bed, in no acute distress . Skin: Warm, dry, no pallor, no rash or petechiae. HEENT: Atraumatic, normocephalic, EOMI, anicteric sclera B; pink conjunctiva; PERRLA, normal oropharynx, moist oral and nasal mucosa. Tympanic membrane , nose , throat clear. Neck: Trachea midline. Supple, full range of motion, no JVD, bruit , hepatojugular reflex , lymphadenopathy or masses, or other lesions Cardiac: Regular rhythm, regular rate no murmurs, rubs, or gallops. Normal S1 and S2, no S3 noticed. PMI is normal. Respiratory: Equal breath sounds bilaterally, no tachypnea; lungs clear to auscultation bilaterally, no wheezing ,rub or rales, or crackles. Chest wall is symmetric and without deformity. No signs of trauma. Chest wall is nontender. No signs of respiratory distress. Resonance is normal upon percussion bilaterally. Gastrointestinal: Abdomen symmetric, non-distended, soft, non-tender, normal bowel sounds x4 quadrant, normoactive, no hepatosplenomegaly , no masses , no bruit, no flank pain bilaterally. No voluntary guarding, rebound, or rigidity. No tenderness to percussion. No pulsatile masses. Equal femoral pulses. No Sousa's sign or McBurney point tenderness. Back; no CVA tenderness bilaterally, no deformities. Neck and back are without deformity as well. No tenderness noted on palpation of the spinous processes. Spinous processes are midline. Cervical, thoracic, and lumbar paraspinal muscles are not tender and are without spasm. : normal external genitalia, without lesions, swelling, masses or tenderness. Musculoskeletal: Extremities, normal range of motion, non-tender, muscle strength 5/5 x 4. Negative Homans signs bilaterally on lower extremity. Distal pulses full symmetrical, no clubbing, cyanosis , edema. Neurological: Speech is clear, alert, and oriented x 4. No motor or sensory deficit, deep tendon reflexes normal, cerebellar intact. Cranial nerves II-XII intact. Psych: Alert and or appropriate, normal affect. Vascular: Good distal pulses, which are equal x4; capillary refill less than 2 seconds. Lymphatic, no lymphadenopathy. *Problems/Diagnosis: (1) Pulmonary infiltrates Status: Acute (2) Goodpasture disease Status: Acute (3) Dialysis patient Status: Acute (4) Normocytic normochromic anemia Status: Acute Total Time Spent on D/C: > 30 Minutes Date of Service: Apr 25, 2025 Billing Provider: CARLY EDGE MD Common Visit Codes: 17422-GYL/OBS DISCH DAY >30min CARLY EDGE MD Apr 24, 2025 15:34 *Problems/Diagnosis: (1) Gross hematuria (2) Normocytic normochromic anemia Status: Acute (3) Goodpasture disease Status: Acute (4) Pulmonary infiltrates Status: Acute Total Time Spent on D/C: > 30 Minutes Date of Service: Apr 25, 2025 Billing Provider: CARLY EDGE MD Common Visit Codes: 31125-DFZ/OBS DISCH DAY >30min CARLY EDGE MD Apr 25, 2025 17:24
== END 2025-04-25 15:08 | disposition short-term general hospital (02) | DRG 545 ==
LOC: ER 16:07 → ED HOLD 18:18 → ORTHO 4S 22:50
PROVIDERS: ADMIT Family Medicine; ATTEND Family Medicine
PROC: 30233N1 Transfusion of Nonautologous Red Blood Cells into Peripheral Vein, Percutaneous Approach (ICD-10-PCS; principal; 2025-04-23)
DX: M31.0 Hypersensitivity angiitis (principal); J15.69 Pneumonia due to other Gram-negative bacteria; N18.6 End stage renal disease; J96.01 Acute respiratory failure with hypoxia; J15.9 Unspecified bacterial pneumonia; I12.0 Hypertensive chronic kidney disease with stage 5 chronic kidney disease or end stage renal disease; Z99.2 Dependence on renal dialysis; D64.9 Anemia, unspecified; E66.01 Morbid (severe) obesity due to excess calories; Z99.81 Dependence on supplemental oxygen; Z68.37 Body mass index [BMI] 37.0-37.9, adult; R31.0 Gross hematuria
CPT/HCPCS: 36415; 36430; 71250; 74176; 80048; 80053; 80076; 81001; 82272; 83605; 83615; 83735; 83880; 84100; 84484; 85025; 85027; 85610; 85730; 86038; 86060; 86256; 86885; 86900; 86901; 86920; 87040; 87081; 87088; 93306; 94760; 96360; 99285; A4620; G0378; J0456; J0696; J1644; J2250; J2919; J3010; J7030; J7040; J7060; P9016